=== PATIENT | female | born 1940 | race Caucasian/White ===

== ENCOUNTER 2019-01-06 09:31 | Inpatient (IN) ==
[2019-01-06 10:35] LABS: Basophils % 0.3 %; Eosinophils % 0.2 %; Hemoglobin 13.4 g/dL (11.5-15.4); Immature Granulocytes % 0.5 % (0-4); Lymphocytes # 2.9 K/mcL (0.6-4.6); Lymphocytes % 27.4 %; Mean Corpuscular HGB Conc 32.7 g/dL (31.6-35.5); Mean Corpuscular Hemoglobin 30.5 pg (28.0-33.3); Mean Corpuscular Volume 93.4 fL (83.0-100.0); Monocytes # 0.8 K/mcL (0.0-1.3); Monocytes % 7.3 %; Neutrophils # 6.8 K/mcL (1.6-8.9); Nucleated Red Blood Cells 0.2 /100 WBC (0); Platelet Count 212 K/mcL (140-400); Red Blood Count 4.39 M/mcL (3.82-4.97); Red Cell Distribution Width 19.1 % (11.5-14.5); Segmented Neutrophils % 64.3 %; White Blood Count 10.6 K/mcL (4.3-11.1)
[2019-01-06 10:41] LABS: INR 1.6; Prothrombin Time 18.4 Seconds (9.4-12.1)
[2019-01-06 10:43] LABS: Activated Partial Thrombo Time 44.5 Seconds (26.0-36.0)
[2019-01-06 10:53] LABS: Albumin 3.8 g/dL (3.5-5.7); Albumin/Globulin Ratio 1.2 (1.1-2.2); Bilirubin,Direct 1.1 mg/dL (0.0-0.2); Bilirubin,Indirect 1.4 mg/dL (0.0-1.0); Bilirubin,Total 2.5 mg/dL (0.3-1.0); Calcium 10.2 mg/dL (8.6-10.3); Globulin 3.2 g/dL (2.4-3.5); Magnesium 2.2 mg/dL (1.6-2.6); Phosphorous 3.5 mg/dL (2.7-4.5); Potassium 4.2 mEq/L (3.5-5.1); Troponin I 0.04 ng/mL (< 0.04)
[2019-01-06 11:12] LABS: Bilirubin,Urine Negative (Negative); Blood,Urine Negative (Negative); Clarity,Urine Clear (Clear); Color,Urine Yellow (Yellow); Glucose,Urine (UA) Normal (Normal); Ketones,Urine Negative (Negative); Leukocyte Esterase,Urine Negative (Negative); Nitrite,Urine Positive (Negative); Protein,Urine Trace mg/dL (Neg-Trace); Specific Gravity,Urine 1.025 (1.010-1.025); Urobilinogen,Urine Normal (Normal)
[2019-01-06 11:29] LABS: Bacteria,Urine Few per hpf (None-Few)
[2019-01-06] MEDS ORDERED: Naloxone 0.4 MG/ML INJ IVP PRN (13:57)
[2019-01-06] MEDS ORDERED: NON-FORMULARY MEDICATION 1 EACH EACH (Lactose-Reduced Food [Boost] 237 ML) PO SCH (15:00)
[2019-01-06] MEDS ORDERED: cloNIDine HCl 0.1 MG TABLET PO PRN (15:02)
[2019-01-06] MEDS: Sucralfate 1 GM TABLET PO SCH (15:59)
[2019-01-06] MEDS: Aspirin Enteric Coated 325 MG Tablet PO SCH (16:00)
[2019-01-06] MEDS: Melatonin 3 MG TABLET PO SCH (21:03)
[2019-01-06] MEDS: Mirtazapine 15 MG TABLET PO SCH (21:04)
[2019-01-06] MEDS: Morphine Sulfate Oral CONC 10 MG/0.5 ML ORAL.SYG SL PRN (22:26)
[2019-01-07] MEDS: Levothyroxine 25 MCG TABLET PO SCH (05:15)
[2019-01-07 06:08] LABS: Basophils % 0.2 %; Hematocrit 36.5 % (35.3-44.9); Hemoglobin 12.1 g/dL (11.5-15.4); Immature Granulocytes % 0.9 % (0-4); Lymphocytes # 1.2 K/mcL (0.6-4.6); Lymphocytes % 20.2 %; Mean Corpuscular HGB Conc 33.2 g/dL (31.6-35.5); Mean Corpuscular Hemoglobin 30.9 pg (28.0-33.3); Mean Corpuscular Volume 93.4 fL (83.0-100.0); Mean Platelet Volume 10.7 fL (9.4-12.4); Monocytes # 0.2 K/mcL (0.0-1.3); Monocytes % 3.4 %; Neutrophils # 4.4 K/mcL (1.6-8.9); Platelet Count 173 K/mcL (140-400); Red Blood Count 3.91 M/mcL (3.82-4.97); Red Cell Distribution Width 18.7 % (11.5-14.5); Segmented Neutrophils % 75.3 %; White Blood Count 5.9 K/mcL (4.3-11.1)
[2019-01-07 06:27] LABS: Calcium 9.6 mg/dL (8.6-10.3); Potassium 4.2 mEq/L (3.5-5.1)
[2019-01-07] MEDS: Famotidine 20 MG TABLET PO SCH ×2 (08:45→11:04)
[2019-01-07] MEDS: Aspirin Enteric Coated 325 MG Tablet PO SCH (08:46)
[2019-01-07] MEDS: Sucralfate 1 GM TABLET PO SCH ×2 (08:46→17:59)
[2019-01-07] MEDS: amLODIPine 5 MG TABLET PO SCH (08:46)
[2019-01-07] MEDS ORDERED: amLODIPine 5 MG TABLET PO SCH (09:00)
[2019-01-07] MEDS: Furosemide 40 MG/4 ML VIAL IVP SCH (17:59)
[2019-01-07] MEDS: Morphine Sulfate Oral CONC 10 MG/0.5 ML ORAL.SYG SL PRN (18:00)
[2019-01-07] MEDS: Mirtazapine 15 MG TABLET PO SCH (22:23)
[2019-01-07] MEDS: Melatonin 3 MG TABLET PO SCH (22:23)
[2019-01-08] MEDS: Morphine Sulfate Oral CONC 10 MG/0.5 ML ORAL.SYG SL PRN (02:37)
[2019-01-08] MEDS: Levothyroxine 25 MCG TABLET PO SCH (05:15)
[2019-01-08] MEDS: Sucralfate 1 GM TABLET PO SCH ×2 (05:15→15:43)
[2019-01-08] MEDS: Furosemide 40 MG/4 ML VIAL IVP SCH ×2 (10:18→15:43)
[2019-01-08] MEDS: Aspirin Enteric Coated 325 MG Tablet PO SCH (10:24)
[2019-01-08] MEDS: amLODIPine 5 MG TABLET PO SCH (10:26)
[2019-01-08] MEDS: Famotidine 20 MG TABLET PO SCH ×2 (10:26)
[2019-01-08] MEDS: cefTRIAXone 1,000 MG in Water for inj. (sterile) 10 ML IVP SCH (13:05)
[2019-01-08] MEDS: Melatonin 3 MG TABLET PO SCH (20:13)
[2019-01-08] MEDS: Mirtazapine 15 MG TABLET PO SCH (20:13)
[2019-01-09] MEDS: Levothyroxine 25 MCG TABLET PO SCH (05:43)
[2019-01-09] MEDS: Sucralfate 1 GM TABLET PO SCH (05:43)
[2019-01-09 07:41] VITALS: BP 121/55
[2019-01-09] MEDS: Furosemide 40 MG/4 ML VIAL IVP SCH (08:11)
[2019-01-09] MEDS: Famotidine 20 MG TABLET PO SCH ×2 (08:12)
[2019-01-09] MEDS: amLODIPine 5 MG TABLET PO SCH (08:13)
[2019-01-09] MEDS: Aspirin Enteric Coated 325 MG Tablet PO SCH (08:13)
[2019-01-09] MEDS: cefTRIAXone 1,000 MG in Water for inj. (sterile) 10 ML IVP SCH (08:14)
== END 2019-01-09 12:13 | DRG 690 ==
LOC: EMEROOGRE 09:31 → INPGRE 09:31
PROVIDERS: ADMIT Internal Medicine; ATTEND Internal Medicine

== ENCOUNTER 2019-01-23 01:31 | Inpatient (IN) ==
[2019-01-23 02:32] LABS: Basophils # 0.1 K/mcL (0.0-0.2); Basophils % 0.3 %; Eosinophils % 0.1 %; Hematocrit 36.8 % (35.3-44.9); Immature Granulocytes % 0.7 % (0-4); Lymphocytes # 1.3 K/mcL (0.6-4.6); Mean Corpuscular HGB Conc 32.6 g/dL (31.6-35.5); Mean Corpuscular Hemoglobin 31.7 pg (28.0-33.3); Mean Corpuscular Volume 97.4 fL (83.0-100.0); Monocytes % 6.1 %; Nucleated Red Blood Cells 0.1 /100 WBC (0); Platelet Count 192 K/mcL (140-400); Red Blood Count 3.78 M/mcL (3.82-4.97); Red Cell Distribution Width 17.9 % (11.5-14.5); Segmented Neutrophils % 84.8 %; White Blood Count 16.1 K/mcL (4.3-11.1)
[2019-01-23] MEDS ORDERED: 0.9 % Sodium Chloride 500 ML IVC ONE (02:32)
[2019-01-23 02:34] LABS: Neutrophils # 13.7 K/mcL (1.6-8.9)
[2019-01-23 02:37] LABS: INR 1.6; Prothrombin Time 17.8 Seconds (9.4-12.1)
[2019-01-23 02:40] LABS: Activated Partial Thrombo Time 42.2 Seconds (26.0-36.0)
[2019-01-23 02:52] LABS: Alanine Aminotransferase 16 Units/L (7-52); Albumin 3.4 g/dL (3.5-5.7); Albumin/Globulin Ratio 1.4 (1.1-2.2); Alkaline Phosphatase 63 Units/L (34-104); Aspartate Amino Transferase 28 Units/L (13-39); BUN/Creatinine Ratio 18 (6-26); Bilirubin,Indirect 1.1 mg/dL (0.0-1.0); Bilirubin,Total 2.1 mg/dL (0.3-1.0); Blood Urea Nitrogen 55 mg/dL (8-23); Calcium 9.4 mg/dL (8.6-10.3); Carbon Dioxide 24 mEq/L (23-29); Chloride 95 mEq/L (98-107); Ethanol < 10 mg/dL (Less than 10); Globulin 2.5 g/dL (2.4-3.5); Glucose 110 mg/dL (70-105); Osmolality,Calculated 288 (280-300); Potassium 4.7 mEq/L (3.5-5.1); Sodium 131 mEq/L (136-145); Total Protein 5.9 g/dL (6.4-8.9); Troponin I 1.19 ng/mL (< 0.04); eGFR For African Americans 18 (> 60); eGFR For Non-African Americans 15 (> 60)
[2019-01-23] MEDS ORDERED: Aspirin 81 MG TAB.CHEW PO STA (03:02)
[2019-01-23] MEDS ORDERED: *HR* Heparin 5,000 UNIT/ML VIAL IVP ONE (03:12)
[2019-01-23] MEDS ORDERED: *HR* Heparin 5,000 UNIT/ML VIAL IVP PRN ×2 (03:12)
[2019-01-23] MEDS ORDERED: Heparin 25,000 UNIT/250 ML D5W 25,000 UNIT/250 ML IV.SOLN IVC SCH (03:15)
[2019-01-23 03:17] LABS: Bilirubin,Urine Small (Negative); Blood,Urine Negative (Negative); Clarity,Urine Slightly Cloudy (Clear); Glucose,Urine (UA) 250 mg/dL (Normal); Ketones,Urine Negative (Negative); Leukocyte Esterase,Urine Negative (Negative); Nitrite,Urine Negative (Negative); Protein,Urine >=300 mg/dL (Neg-Trace); Specific Gravity,Urine >= 1.030 (1.010-1.025); Urobilinogen,Urine Normal (Normal)
[2019-01-23 03:19] LABS: Color,Urine Dark Yellow (Yellow)
[2019-01-23 03:21] LABS: Amorphous Sediment,Urine Few per hpf (Few); Hyaline Casts,Urine Few per lpf (None-Few)
[2019-01-23 03:31] LABS: Amphetamine Screen,Urine Negative ng/mL (Cutoff=1000); Barbiturate Screen,Urine Negative ng/mL (Cutoff=200); Benzodiazepines Screen,Urine Negative ng/mL (Cutoff=200); Cannabinoid Screen,Urine Negative ng/mL (Cutoff = 50); Cocaine Screen,Urine Negative ng/mL (Cutoff= 300); Opiate Screen,Urine Positive ng/mL (Cutoff=300); Phencyclidine Screen,Urine Negative ng/mL (Cutoff=25)
[2019-01-23] MEDS ORDERED: Ondansetron 4 MG/2 ML VIAL IVP PRN (06:22)
[2019-01-23] MEDS ORDERED: Naloxone 0.4 MG/ML INJ IVP PRN (06:22)
[2019-01-23] MEDS ORDERED: Morphine Sulfate 2 MG/ML SYRINGE IVP PRN (06:22)
[2019-01-23] MEDS ORDERED: Acetaminophen 325 MG TABLET PO PRN (06:22)
[2019-01-23] MEDS ORDERED: D5% in 0.45% NACL 1,000 ML IVC SCH (06:22)
[2019-01-23] MEDS ORDERED: Furosemide 40 MG TABLET PO SCH (08:00)
[2019-01-23] MEDS ORDERED: Ranolazine 500 MG TAB.ER.12H PO SCH (09:00)
[2019-01-23] MEDS ORDERED: Sennosides 8.6 MG TABLET PO SCH (09:00)
[2019-01-23] MEDS ORDERED: Aspirin Enteric Coated 325 MG Tablet PO SCH (09:00)
[2019-01-23 09:48] VITALS: BP 105/57
[2019-01-23] MEDS: Ipratropium/Albuterol Neb 3 ML IH SCH ×2 (09:56→11:12)
[2019-01-23] MEDS ORDERED: *HR* Heparin 5,000 UNIT/ML VIAL SQ SCH (18:00)
[2019-01-23] MEDS ORDERED: traZODone 50 MG TABLET PO SCH (21:00)
== END 2019-01-23 12:13 | DRG 281 ==
LOC: EMEROOGRE 01:31 → INPGRE 06:02
PROVIDERS: ADMIT Internal Medicine; ATTEND Internal Medicine